=== PATIENT | female | born 1955 | race African-American/Black ===

== ENCOUNTER 2019-04-08 17:35 | Emergency (ER) | payer MEDICARE, MEDICAID ==
[~2019-04-08] VITALS: Ht 165.1 cm; Wt 100.0 kg
[2019-04-08 18:15] VITALS: BP 181/88
== END 2019-04-08 21:40 | disposition left against medical advice (07) ==
LOC: ER 17:35
DX: Z53.21 Procedure and treatment not carried out due to patient leaving prior to being seen by health care provider (principal)

== ENCOUNTER 2021-10-29 15:32 | Emergency (ER) | payer MEDICARE, MEDICAID ==
[~2021-10-29] VITALS: Ht 165.1 cm; Wt 109.0 kg
[2021-10-29 15:56] VITALS: BP 170/84
== END 2021-10-29 16:51 | disposition home or self-care (01) ==
LOC: ER 15:32
DX: N63.0 Unspecified lump in unspecified breast (principal)
CPT/HCPCS: 99281

== ENCOUNTER 2023-11-02 14:29 | Emergency (ER) | payer MEDICARE, MEDICAID ==
[~2023-11-02] VITALS: Ht 165.1 cm; Wt 96.0 kg
[2023-11-02 14:53] VITALS: O2SAT 100
[2023-11-02 16:35] LABS: BASOPHILS % 0.3 % (0.0-2.0); DIFFERENTIAL COMMENT 0; EOSINOPHILS % 1.8 % (0.0-5.0); HEMOGLOBIN. 11.2 g/dL (12.0-16.0); LYMPHOCYTES % 31.3 % (20.0-50.0); MEAN CORPUSCULAR HEMOGLOBIN 25.5 pg (28.0-32.0); MEAN CORPUSCULAR HGB CONC 31.9 g/dL (31.0-37.0); MEAN CORPUSCULAR VOLUME 79.9 fL (81.0-99.0); MEAN PLATELET VOLUME 9.2 fl (7.4-10.4); MONOCYTES % 11.8 % (2.0-8.0); NEUTROPHILS % 54.8 % (40.0-76.0); PLATELET 221 x1000/uL (130-400); RED BLOOD CELL COUNT 4.38 mill/uL (4.2-5.4); RED CELL DISTRIBUTION WIDTH 14.8 % (11.6-14.6); WHITE BLOOD COUNT 7.3 x1000/uL (4.5-11.0)
[2023-11-02 16:46] LABS: ALANINE AMINOTRANSFERASE 8 IU/L (10-49); ALBUMIN 4.6 g/dL (3.2-4.8); ASPARTATE AMINOTRANSFERASE 14 IU/L (<34); BILIRUBIN TOTAL 0.6 mg/dL (0.1-1.0); CALCIUM 9.9 mg/dL (8.7-10.4); CARBON DIOXIDE 28 mEq/L (21-32); CHLORIDE 105 mEq/L (98-107); GLUCOSE 95 mg/dL (70-105); POTASSIUM 4.1 mEq/L (3.5-5.1); PROTEIN TOTAL 7.3 g/dL (6.0-8.3); SODIUM 139 mEq/L (136-145); UREA NITROGEN BLOOD 13 mg/dL (9-23)
[2023-11-02 18:09] VITALS: BP 134/87; PULSE 79; RESP 18; TEMP 98.2
== END 2023-11-02 19:06 | disposition home or self-care (01) ==
LOC: ER 14:29
DX: N63.0 Unspecified lump in unspecified breast (principal); Z68.35 Body mass index [BMI] 35.0-35.9, adult
CPT/HCPCS: 36415; 71045; 76641; 80053; 85025; 99284

== ENCOUNTER 2023-11-30 14:38 | Emergency (ER) | payer MEDICARE, MEDICAID ==
[~2023-11-30] VITALS: Ht 165.1 cm; Wt 110.0 kg
[2023-11-30 14:43] VITALS: BP 160/83; PULSE 85; RESP 20; TEMP 98.6; O2SAT 98
== END 2023-11-30 17:50 | disposition left against medical advice (07) ==
LOC: ER 14:38
DX: N63.0 Unspecified lump in unspecified breast (principal); Z98.890 Other specified postprocedural states
CPT/HCPCS: 99281